=== PATIENT | female | born 1960 | race Caucasian/White ===

== ENCOUNTER 2023-07-28 10:00 | Day surgery (SDC) | payer BC ==
[~2023-07-28] VITALS: Ht 167.6 cm; Wt 132.3 kg
[~2023-07-28 10:00] MED LIST: ACET500; BUPROPION XL150 M1 PO; CALCIUM 500 MG1 EAC2; CHOLP; Calcium Carbon500 MG; DOC250; GLIP10ER; JARDIANCE25 MG PO; Lactated Ringer's 1,000 ML IV ONE; PRED FORTE5 M1; TIMDOROPSO BOTHEYES; TIMO.25OPS
[2023-07-28] MEDS ORDERED: CeFAZolin Sodium 3,000 MG in NS 100 ML IV SCH (10:25)
[2023-07-28] MEDS ORDERED: ALCIS59.15 ML (10:27)
[2023-07-28] MEDS ORDERED: Lactated Ringer's 1,000 ML IV ONE (10:47)
[2023-07-28] MEDS ORDERED: FentaNYL Citrate 50 MCG/ML 2 ML Injection ONE (12:40)
[2023-07-28] MEDS ORDERED: propofoL 20 ML IV ONE (12:40)
[2023-07-28] MEDS ORDERED: Ondansetron HCl 2 MG / ML 2ML Vial ONE (12:42)
[2023-07-28] MEDS ORDERED: Rocuronium Bromide 10 MG/ML 5ML Injection IV ONE (12:42)
[2023-07-28] MEDS ORDERED: Dexamethasone Sod Phos 10 MG/ML 1ML VIAL ONE (12:42)
[2023-07-28] MEDS ORDERED: Sugammadex Sodium 200 MG/2ML SDV (100 MG/ML) ONE (13:31)
--- NOTE | 2023-07-28 13:48 | NUR ---
07/28/23 1348 Lavern Baldwin NORMAL SALINE FLUID DEFICIT OF 95ML. MDS NOTIFIED.
[2023-07-28 14:11] VITALS: BP 117/65
--- NOTE | 2023-07-28 14:13 | NUR ---
07/28/23 1412 Chloe King WHEN ASKED PT. ABOUT ANY PAIN PT. "STATES A LITTLE CRAMPING IN LOWER ABDOMEN RATING "2" & TOLERABLE. PT. STATES "MORE HUNGER THAN ANYTHING ELSE." PT. VERBALIZES FEELING A LITTLE DIZZY TOO.
== END 2023-07-28 15:35 | disposition home or self-care (01) ==
LOC: ORSCSDS 10:00
PROVIDERS: Obstetrics & Gynecology
PROC: 0UDB8ZX Extraction of Endometrium, Via Natural or Artificial Opening Endoscopic, Diagnostic (ICD-10-PCS; principal; 2023-07-28 11:30)
DX: N95.0 Postmenopausal bleeding (principal); N85.00 Endometrial hyperplasia, unspecified; E11.9 Type 2 diabetes mellitus without complications; K21.9 Gastro-esophageal reflux disease without esophagitis; F32.A Depression, unspecified; F41.9 Anxiety disorder, unspecified; I10 Essential (primary) hypertension; E66.9 Obesity, unspecified; Z68.42 Body mass index [BMI] 45.0-49.9, adult; Z79.84 Long term (current) use of oral hypoglycemic drugs; Z79.899 Other long term (current) drug therapy
CPT/HCPCS: 82947; 88305; J0690; J1100; J2405; J2704; J3010; J7120